=== PATIENT | female | born 1955 | race Two or more races ===

== ENCOUNTER 2017-11-16 14:47 | Outpatient (CLI) | payer OTHER | END 2017-11-16 15:41 | disposition home or self-care (01) | LOC: SONOGRAMA 14:47 | DX: M53.3 Sacrococcygeal disorders, not elsewhere classified (principal); M25.511 Pain in right shoulder; M54.5 Low back pain; M75.42 Impingement syndrome of left shoulder ==

== ENCOUNTER 2017-11-16 14:57 | Outpatient (CLI) | payer OTHER | END 2017-11-16 15:43 | disposition home or self-care (01) | LOC: RAD 14:57 | DX: M53.3 Sacrococcygeal disorders, not elsewhere classified (principal); M25.511 Pain in right shoulder; M54.5 Low back pain; M75.42 Impingement syndrome of left shoulder ==

== ENCOUNTER 2018-06-14 09:07 | Outpatient (CLI) | payer OTHER | END 2018-06-14 09:14 | disposition home or self-care (01) | LOC: MAMO-SONO 09:07 | DX: Z12.31 Encounter for screening mammogram for malignant neoplasm of breast (principal); N60.11 Diffuse cystic mastopathy of right breast; N60.12 Diffuse cystic mastopathy of left breast ==

== ENCOUNTER 2018-09-24 12:47 | Outpatient (CLI) | payer OTHER | END 2018-09-24 13:01 | disposition home or self-care (01) | LOC: RAD 12:47 | DX: S83.241A Other tear of medial meniscus, current injury, right knee, initial encounter (principal); S83.231A Complex tear of medial meniscus, current injury, right knee, initial encounter; M17.11 Unilateral primary osteoarthritis, right knee | CPT/HCPCS: 73718 ==

== ENCOUNTER 2018-09-30 13:27 | Outpatient (CLI) | payer OTHER | END 2018-09-30 13:37 | disposition home or self-care (01) | LOC: RAD 13:27 | DX: J45.41 Moderate persistent asthma with (acute) exacerbation (principal); J30.89 Other allergic rhinitis ==

== ENCOUNTER 2018-12-05 13:11 | Outpatient (CLI) | payer OTHER | END 2018-12-05 13:29 | disposition home or self-care (01) | LOC: NUCLEAR 13:11 | DX: M85.89 Other specified disorders of bone density and structure, multiple sites (principal); M81.0 Age-related osteoporosis without current pathological fracture ==

== ENCOUNTER 2021-07-12 11:09 | Outpatient (CLI) | payer OTHER | END 2021-07-12 11:18 | disposition home or self-care (01) | LOC: MAMO-SONO 11:09 → NUCLEAR 13:15 | DX: R92.1 Mammographic calcification found on diagnostic imaging of breast (principal); Z12.31 Encounter for screening mammogram for malignant neoplasm of breast; N64.4 Mastodynia ==

== ENCOUNTER 2021-08-30 13:05 | Outpatient (CLI) | payer OTHER | END 2021-08-30 13:06 | disposition home or self-care (01) | LOC: NUCLEAR 13:05 | PROVIDERS: ATTEND Specialist | DX: M81.0 Age-related osteoporosis without current pathological fracture (principal); Z53.09 Procedure and treatment not carried out because of other contraindication ==

== ENCOUNTER 2022-05-01 12:26 | Outpatient (CLI) | payer OTHER | END 2022-05-01 12:28 | disposition home or self-care (01) | LOC: MRI 12:26 | PROVIDERS: ATTEND Physical Medicine & Rehabilitation | DX: M54.12 Radiculopathy, cervical region (principal) | CPT/HCPCS: 72141 ==

== ENCOUNTER 2023-09-19 15:58 | Outpatient (CLI) | payer OTHER | END 2023-09-19 16:05 | disposition home or self-care (01) | LOC: RAD 15:58 | PROVIDERS: ATTEND Neuromusculoskeletal Medicine, Sports Medicine | DX: M17.11 Unilateral primary osteoarthritis, right knee (principal); M17.12 Unilateral primary osteoarthritis, left knee ==

== ENCOUNTER 2023-10-09 13:37 | Outpatient (CLI) | payer OTHER | END 2023-10-09 13:46 | disposition home or self-care (01) | LOC: MRI 13:37 | PROVIDERS: ATTEND Neuromusculoskeletal Medicine, Sports Medicine | DX: M25.512 Pain in left shoulder (principal) | CPT/HCPCS: 73218 ==

== ENCOUNTER 2024-06-25 12:30 | Outpatient (CLI) | payer OTHER | END 2024-06-25 12:38 | disposition home or self-care (01) | LOC: MAMO-SONO 12:30 | PROVIDERS: ATTEND Family Medicine | DX: N60.11 Diffuse cystic mastopathy of right breast (principal); N60.12 Diffuse cystic mastopathy of left breast; Z12.31 Encounter for screening mammogram for malignant neoplasm of breast ==

== ENCOUNTER 2024-07-07 13:20 | Outpatient (CLI) | payer OTHER | END 2024-07-07 13:22 | disposition home or self-care (01) | LOC: NUCLEAR 13:20 | PROVIDERS: ATTEND Family Medicine | DX: M85.00 Fibrous dysplasia (monostotic), unspecified site (principal); M81.0 Age-related osteoporosis without current pathological fracture ==

== ENCOUNTER 2024-10-28 10:29 | Outpatient (CLI) | payer OTHER | END 2024-10-28 10:35 | disposition home or self-care (01) | LOC: RAD 10:29 | PROVIDERS: ATTEND Neuromusculoskeletal Medicine, Sports Medicine | DX: M17.0 Bilateral primary osteoarthritis of knee (principal) ==